=== PATIENT | male | born 1990 | race Caucasian/White ===

== ENCOUNTER 2020-04-15 11:28 | Emergency (ER) | payer SELFPAY ==
[2020-04-15 11:29] VITALS: BP 134/71; PULSE 83; RESP 16; TEMP 35.7; O2SAT 99; BMI 23.0
--- NOTE | 2020-04-15 11:39 | ED.DCSUM_ITS ---
History of Present Illness Chief Complaint: Back Informant: Patient Onset: Weeks - 1 week Context: Gradual Onset Current Severity: Moderate Maximum Severity: Moderate Narrative: Patient presents with a one-week history of back pain. He states it started in his mid back and now has spread both up and down his back. Pain does not radiate to his legs or arms. He denies any known injury. Pain is worse with movement and twisting. Past Medical History - Allergies and Home Meds Allergies/Adverse Reactions: Allergies No Known Allergies Allergy (Verified 04/15/20 11:29) Primary Care Physician: Care Physician,No Primary [Primary Care Provider] - Past Medical History: None Surgical History: appendectomy Smoking Status: Current every day smoker Review of Systems General: Denies: Chills, Fever Eyes: Denies: Visual changes - bilaterally ENT: Denies: Bilateral ear pain Cardiovascular: Denies: Chest pain Respiratory: Denies: Dyspnea, Cough Gastrointestinal: Denies: Abdominal pain Musculoskeletal: Reports: Back pain Skin: Denies: Rash Neurological: Denies: Parasthesia, Numbness Hematologic: Denies: Easy bruising, Easy bleeding Allergy: Denies: Uticaria Physical Exam Vital Signs/Narrative: Vital Signs Temp Pulse Resp BP Pulse Ox 04/15/20 11:29 96.2 F L 83 16 134/71 H 99 Inital Vital Signs reviewed: Yes General: Well nourished, Well developed Head: Normocephalic ENT: Moist mucous membranes Neck: Supple Cardiovascular: Regular rate, Regular rhythm Respiratory: No distress, CTA bilaterally Abdomen: Soft Back: - - Diffuse tenderness throughout the thoracic and upper lumbar paraspinal muscles. No erythema or focal bone tenderness. Skin: Normal color Neurological: Alert, Oriented x3, Normal Strength, Normal Sensation Psychological: Normal affect Diagnostic/Tx/Re-eval - Medical Decision Making Patient be treated with naproxen and Flexeril. Without direct injury to his back I do not think that x-rays will be beneficial. This was discussed with him. He will be referred to jose j Gonzalez on the no doc list for follow-up. ED Disposition - Plan for ED Patient: Disposition: Home or Assisted Living Diagnosis: Back pain, Paraspinal muscle spasm Instructions: ED Spasm Back No Trauma Prescriptions: cycloBENZAPRine HCl [Flexeril] 10 mg PO TID PRN #20 tab PRN Reason: Muscle Spasm Transmission Status: Pending to [facility] Naproxen [Naprosyn] 500 mg PO BID PRN PRN #20 tab PRN Reason: Pain Score 4-10/10 Transmission Status: Pending to [facility] Referrals: Yuli Woodall MD [STAFF PHYSICIAN] - 1-2 Weeks
[2020-04-15] MEDS: cycloBENZAPRine HCl 10 MG Tablet PO (11:46)
[2020-04-15] MEDS: Naproxen 500 MG Tablet PO (11:46)
== END 2020-04-15 11:56 | disposition home or self-care (01) ==
LOC: ED 11:52
PROVIDERS: Emergency Provider Emergency Medicine
DX: M62.830 Muscle spasm of back (principal); M54.9 Dorsalgia, unspecified; F17.200 Nicotine dependence, unspecified, uncomplicated
CPT/HCPCS: 99283

== ENCOUNTER 2020-05-23 01:25 | Emergency (ER) | payer SELFPAY ==
[2020-05-23 01:26] VITALS: BP 168/117; PULSE 111; RESP 17; TEMP 36; O2SAT 99; BMI 21.7
--- NOTE | 2020-05-23 01:26 | ED.VIS.GEN ---
History of Present Illness Chief Complaint: Dental Informant: Patient Onset: Weeks Context: Gradual Onset Timing: Continuous Current Severity: Moderate Maximum Severity: Moderate Narrative: Patient is a 29-year-old male who presents to the emergency department with dental pain. Patient states been going on for 2 weeks. He states that he is scheduled to see a dentist to have some teeth extracted, but has not had time to follow-up. He denies any definitive injury. He states he has known cavities and they have been increasingly painful. He describes hot and cold sensitivity. He denies any trouble speaking or swallowing. Prior similar symptoms: Yes Recent Illness/Hospitalization: No Past Medical History - Allergies and Home Meds Allergies/Adverse Reactions: Allergies No Known Allergies Allergy (Verified 05/23/20 01:28) Primary Care Physician: Care Physician,No Primary [Primary Care Provider] - Prior records reviewed: Yes Past Medical History: None Surgical History: appendectomy Smoking Status: Current every day smoker Review of Systems General: Denies: Chills, Fever, Sweats Eyes: Denies: Visual changes - bilaterally, Diplopia ENT: Denies: Rhinorrhea, Sore throat Cardiovascular: Denies: Chest pain, Palpitations Respiratory: Denies: Dyspnea, Cough, Dyspnea on exertion Gastrointestinal: Denies: Abdominal pain, Nausea, Vomiting, Diarrhea, Melena, Hematochezia Genitourinary: Denies: Dysuria, Hematuria, Frequency Musculoskeletal: Denies: Back pain, Extremity Pain Skin: Denies: Rash, Wounds Neurological: Denies: Headache, Weakness, Numbness Physical Exam Inital Vital Signs reviewed: Yes General: Well nourished, Well developed, No Acute Distress Head: Normocephalic, Atraumatic Eyes: Perrl, EOMI ENT: Moist mucous membranes, No rhinorrhea, - - There is some widespread dental disease. There is no focal abscess. There is cavity of tooth 14 and 31. There is tenderness to palpation. The submental space is soft. Neck: Supple, Nontender Cardiovascular: Regular rate, Regular rhythm, No murmurs Respiratory: No distress, CTA bilaterally, Chest nontender Abdomen: Soft, Nontender, Nondistended, Normal bowel sounds Back: Nontender, Normal Inspection Extremities: Nontender, No edema Skin: Normal color, No rash Neurological: Alert, Oriented x3, Cranial nerves II-XII grossly intact, Normal Strength, Normal Sensation Psychological: Normal affect, Normal Mood Diagnostic/Tx/Re-eval - Medical Decision Making Patient presents with cavities that are painful. There is no evidence of Arnoldo angina. He has no trismus or stridor. Patient will be treated with penicillin and anti-inflammatories. He will be given outpatient dental resources. He will be discharged home. Impression 1. Dental pain ED Disposition - Plan for ED Patient: Instructions: ED [facility] Dental Prescriptions: Naproxen [Naprosyn] 500 mg PO BID PRN #20 tab Prescription Printed Penicillin V Potassium 500 mg PO 4X/DAY #40 tab Prescription Printed Referrals: Care Physician,No Primary [Primary Care Provider] -
[2020-05-23] MEDS: Naproxen 250 MG Tablet 500 MG PO (01:28)
[2020-05-23] MEDS: Penicillin Vk 250 MG Tablet 500 MG PO (01:29)
[2020-05-23 01:33] VITALS: BP 168/117; PULSE 111; RESP 17; TEMP 36; O2SAT 98
== END 2020-05-23 01:34 | disposition home or self-care (01) ==
LOC: ED 01:33
PROVIDERS: Emergency Provider Emergency Medicine
DX: K02.9 Dental caries, unspecified (principal); K08.89 Other specified disorders of teeth and supporting structures; F17.200 Nicotine dependence, unspecified, uncomplicated
CPT/HCPCS: 99281